=== PATIENT | male | born 1960 | race Two or more races ===

== ENCOUNTER 2018-09-09 12:43 | Emergency (ER) | payer OTHER ==
[~2018-09-09] VITALS: Ht 193 cm; Wt 113.4 kg
[~2018-09-09 12:43] MED LIST: ZANTAC
== END 2018-09-09 15:15 | disposition home or self-care (01) ==
LOC: ER 12:43
DX: S40.012A Contusion of left shoulder, initial encounter (principal); V49.9XXA Car occupant (driver) (passenger) injured in unspecified traffic accident, initial encounter; Y93.89 Activity, other specified; Y92.488 Other paved roadways as the place of occurrence of the external cause; Y99.8 Other external cause status